=== PATIENT | female | born 1990 | race Caucasian/White ===

== ENCOUNTER 2023-03-16 20:25 | Emergency (ER) | payer OTHER, SELFPAY ==
[2023-03-16 20:29] VITALS: BP 130/74; PULSE 88; RESP 16; TEMP 36.8; BMI 35.9
--- NOTE | 2023-03-16 20:42 | ED.GENADUL1 ---
HPI - General Adult General Chief complaint: Abdominal Pain Stated complaint: Constipation Time Seen by Provider: 03/16/23 20:27 Source: patient Mode of arrival: walk-in History of Present Illness HPI narrative: Patient arrives from [facility], complaining that she has not had a BM in 3 weeks despite eating normal amounts of food and not having nausea, abdominal pain or vomiting. She said that she passes gas. She has been taking Miralax, mag citrate, laxatives and only passed a few nahum of stool today. Related Data Home Medications Medication Instructions Recorded Confirmed buprenorphine 8 mg-naloxone 2 mg 1 film sublingual Q24H 03/16/23 03/16/23 sublingual film Previous Rx's Medication Instructions Recorded hyoscyamine sulfate 0.125 mg 0.125 mg PO Q6H PRN abdominal pain 03/16/23 sublingual tablet (Levsin/SL) #20 tabs ondansetron 4 mg disintegrating 4 mg PO Q6H PRN nausea and 03/16/23 tablet vomiting #10 tabs Allergies Allergy/AdvReac Type Severity Reaction Status Date / Time No Known Drug Allergies Allergy Verified 03/16/23 20:33 PFSH PFSH Social History Smoking status: Current every day smoker Exam Narrative Exam Narrative: Nurses notes and vital signs reviewed and patient is not hypoxic. afebrile General: Well-appearing and in no apparent distress. Skin: Warm, dry, no pallor noted. No rash to abdomen. Eye: Pupils are equal, round and EOMI. No scleral icterus. Ears, Nose, Mouth, and Throat: TM are clear, no posterior oropharynx erythema or nasal mucosal hypertrophy, uvula is mid-line Oral mucosa is moist Cardiovascular: Regular Rate and Rhythm without murmur, gallop or rub. Respiratory: No accessory muscle use or respiratory distress. Lungs are clear to auscultation, no wheezing, rales or rhonchi Back: No CVA tenderness Musculoskeletal: normal ROM, no calf or popliteal tenderness, no lower extremity edema/swelling GI: Abdomen is soft, non-distended. Normal bowel sounds. No masses appreciated. No tenderness to palpation. No rebound, guarding, or rigidity noted. Neurological: A&O x4. No cranial nerve dysfunction observed. No truncal ataxia. Moves all extremities. Sensation intact. Psychiatric: Cooperative and interactive. Normal mood and affect. Constitutional Vital Signs, click to edit/add: Last Vital Signs Temp 98.3 F 03/16/23 20:29 Pulse 88 03/16/23 20:29 Resp 16 03/16/23 20:29 BP 130/74 03/16/23 20:29 Course Vital Signs Vital signs: Vital Signs Temperature 98.3 F 03/16/23 20:29 Pulse Rate 88 03/16/23 20:29 Respiratory Rate 16 03/16/23 20:29 Blood Pressure 130/74 03/16/23 20:29 Temperature 98.3 F 03/16/23 20:29 Pulse Rate 88 03/16/23 20:29 Respiratory Rate 16 03/16/23 20:29 Blood Pressure 130/74 03/16/23 20:29 Medical Decision Making MDM Narrative Medical decision making narrative: Peripheral IV obtained. Blood drawn and sent for evaluation. Non contrast CT scan abdomen and pelvis obtained. She was given oral Levsin and NS IVF bolus. Blood testing notable only for minimally elevated AST and slightly decreased Ca - CBC and CMP otherwise normal. CT shows moderate stool retention without obstruction. Patient informed of results and discharged home with prescription for GoLytely solution, instructions to be on strict clear liquid diet only for next 24 hours and Levsin to take for any pain that develops. She was discharged back to [facility]. ED return if she worsens. Lab Data Lab results reviewed: Yes I reviewed the patient's lab results Labs: Lab Results 03/16/23 Range/Units 21:00 WBC 6.4 (4.0-11.0) 10^3/uL RBC 4.60 (4.20-5.40) 10^6/uL Hgb 12.9 (12.0-16.0) g/dL Hct 40.7 (36.0-48.0) % MCV 88.5 (81.0-99.0) fL MCH 28.0 (26.7-34.0) pg MCHC 31.7 (29.9-35.2) g/dL RDW 13.8 (11.0-15.0) % Plt Count 161 (150-450) 10^3/uL MPV 10.1 (9.5-13.5) fL Neut % (Auto) 37.4 L (43.0-75.0) % Lymph % (Auto) 50.2 (20.5-60.0) % Marin % (Auto) 8.7 (1.7-12.0) % Eos % (Auto) 2.8 (0.9-7.0) % Baso % (Auto) 0.6 (0.2-2.0) % Neut # (Auto) 2.4 (1.4-6.5) 10^3/uL Lymph # (Auto) 3.2 (1.2-3.8) 10^3/uL Marin # (Auto) 0.6 (0.3-0.8) 10^3/uL Eos # (Auto) 0.2 (0.0-0.7) 10^3/uL Baso # (Auto) 0.0 (0.0-0.1) 10^3/uL Abs Immat Gran (auto) 0.02 (0.00-0.03) 10^3/uL Imm/Tot Granulo (auto) 0.3 (0.0-0.5) % Sodium 137 (136-145) mmol/L Potassium 3.9 (3.5-5.1) mmol/L Chloride 103 (98-107) mmol/L Carbon Dioxide 29.5 (21.0-32.0) mmol/L Anion Gap 8.4 BUN 4.0 L (7.0-18.0) mg/dL Creatinine 0.67 (0.55-1.02) mg/dL Est GFR ( Amer) >60 (>=60) Est GFR (Non-Af Amer) >60 (>=60) BUN/Creatinine Ratio 6.0 Glucose 93 (74-106) mg/dL Calcium 8.4 L (8.5-10.1) mg/dL Total Bilirubin 0.3 (0.2-1.0) mg/dL AST 39 H (15-37) U/L ALT 40 (14-59) U/L Alkaline Phosphatase 63 (46-116) U/L Total Protein 6.8 (6.4-8.2) g/dL Albumin 3.1 L (3.4-5.0) g/dL Globulin 3.7 g/dL Albumin/Globulin Ratio 0.[address] scan - abdomen: Radiologist's impression: Patient Name: MARK ARNOLD MRN: [facility]:[id number] date: 1990 Sex: F Assigned Patient Location: ER Current Patient Location: ER Accession/Order Number: [id number] Exam Date: 03/16/2023 21:18 Report Date: 03/16/2023 21:52 At the request of: ARON MEDRANO Procedure: CT abdomen pelvis wo con EXAM: CT abdomen pelvis wo con HISTORY: constipation COMPARISON: None. TECHNIQUE: Unenhanced axial CT of the abdomen and pelvis was performed with coronal and sagittal reformats provided. FINDINGS: Lung bases: Atelectasis or scarring at the left lung base. ABDOMEN: Liver: Hepatic steatosis. Likely focal fatty sparing at the falciform ligament. Gallbladder/biliary: Normal. No biliary dilation. Pancreas: Normal. Spleen: Normal. Adrenals: Normal. Kidneys, ureters and urinary bladder: Normal. Pelvis: Retroflexed uterus. No adnexal masses. Vasculature: Normal caliber of the abdominal aorta. Hollow viscera/retroperitoneum: Normal appearance of the gastroesophageal junction. The small bowel is normal caliber. Appendix is normal. No focal colonic wall thickening. No mesenteric or pelvic lymphadenopathy. No intra-abdominal free fluid or free air. Moderate colonic stool burden. Musculoskeletal/soft tissues: The soft tissues are within normal limits. No acute or aggressive osseous abnormality. IMPRESSION: Moderate colonic stool burden with a nonobstructive bowel gas pattern in keeping with constipation. Otherwise, no acute intra-abdominal or pelvic abnormality. Hepatic steatosis. Electronically authenticated by: YOLANDA DIOP Date: 03/16/2023 21:52 Discharge Plan Discharge Chief Complaint: Abdominal Pain Clinical Impression: Constipation Patient Disposition: Home, Self-Care Time of Disposition Decision: 22:12 Prescriptions / Home Meds: New hyoscyamine sulfate [Levsin/SL] 0.125 mg tablet, sublingual 0.125 mg PO Q6H PRN (Reason: abdominal pain) Qty: 20 0RF ondansetron 4 mg tablet,disintegrating 4 mg PO Q6H PRN (Reason: nausea and vomiting) Qty: 10 0RF No Action buprenorphine-naloxone 8-2 mg film 1 film sublingual Q24H Instructions: Constipation (ED) Stand Alone Forms: Portal Instructions Referrals: Physician,Non-Staff, MD [Primary Care Provider] - 1 week
[2023-03-16] MEDS: HYOSCYAMINE SULFATE 0.125 MG TAB.SUBL SL (20:58)
[2023-03-16 21:18] LABS: Basophils Percent Auto 0.6 % (0.2-2.0); Eosinophils Absolute Auto 0.2 10^3/uL (0.0-0.7); Eosinophils Percent Auto 2.8 % (0.9-7.0); Hematocrit 40.7 % (36.0-48.0); Hemoglobin 12.9 g/dL (12.0-16.0); Immature Granulocytes Abs Auto 0.02 10^3/uL (0.00-0.03); Immature Granulocytes Pct Auto 0.3 % (0.0-0.5); Lymphocytes Absolute Auto 3.2 10^3/uL (1.2-3.8); Lymphocytes Percent Auto 50.2 % (20.5-60.0); Mean Corpuscular HGB Conc 31.7 g/dL (29.9-35.2); Mean Corpuscular Volume 88.5 fL (81.0-99.0); Mean Platelet Volume 10.1 fL (9.5-13.5); Monocytes Absolute Auto 0.6 10^3/uL (0.3-0.8); Monocytes Percent Auto 8.7 % (1.7-12.0); Neutrophils Absolute Auto 2.4 10^3/uL (1.4-6.5); Neutrophils Percent Auto 37.4 % (43.0-75.0); Platelet Count 161 10^3/uL (150-450); Red Cell Distribution Width 13.8 % (11.0-15.0); White Blood Count 6.4 10^3/uL (4.0-11.0)
[2023-03-16 21:29] LABS: Alanine Aminotransferase 40 U/L (14-59); Albumin Globulin Ratio 0.8; Albumin Level 3.1 g/dL (3.4-5.0); Alkaline Phosphatase 63 U/L (46-116); Anion Gap 8.4; Aspartate Amino Transferase 39 U/L (15-37); Bilirubin Total 0.3 mg/dL (0.2-1.0); Calcium 8.4 mg/dL (8.5-10.1); Carbon Dioxide 29.5 mmol/L (21.0-32.0); Chloride 103 mmol/L (98-107); Estimated GFR (African America >60 (>=60); Estimated GFR (Non-African Ame >60 (>=60); Globulin 3.7 g/dL; Glucose 93 mg/dL (74-106); Potassium 3.9 mmol/L (3.5-5.1); Sodium 137 mmol/L (136-145); Total Protein 6.8 g/dL (6.4-8.2)
[2023-03-16 22:30] VITALS: BP 132/75; PULSE 75; RESP 16; O2SAT 95
== END 2023-03-16 22:30 | disposition home or self-care (01) ==
PROVIDERS: Emergency Provider Emergency Medicine
DX: K59.00 Constipation, unspecified (principal); F17.200 Nicotine dependence, unspecified, uncomplicated; K76.0 Fatty (change of) liver, not elsewhere classified
CPT/HCPCS: 36415; 74176; 80053; 85025; 99284